=== PATIENT | male | born 1970 | race Caucasian/White ===

== ENCOUNTER 2021-11-04 03:40 | Emergency (ER) | payer OTHER ==
[~2021-11-04] VITALS: Ht 177.8 cm; Wt 93.0 kg
== END 2021-11-04 04:36 | disposition left against medical advice (07) ==
LOC: ED 03:40
DX: R07.89 Other chest pain (principal)

== ENCOUNTER 2022-10-17 12:02 | Emergency (ER) | payer MEDICARE ==
[~2022-10-17] VITALS: Ht 177.8 cm; Wt 90.7 kg
[2022-10-17] MEDS ORDERED: METHOCARBAMOL500 M1 PO (14:23)
[2022-10-17] MEDS ORDERED: IBUPROFEN600 MG PO (14:23)
== END 2022-10-17 14:33 | disposition home or self-care (01) ==
LOC: ED 12:02
DX: S13.4XXA Sprain of ligaments of cervical spine, initial encounter (principal); S23.3XXA Sprain of ligaments of thoracic spine, initial encounter; V89.2XXA Person injured in unspecified motor-vehicle accident, traffic, initial encounter; Y93.89 Activity, other specified; Y92.89 Other specified places as the place of occurrence of the external cause; Y99.8 Other external cause status